=== PATIENT | male | born 1945 | race Caucasian/White ===

== ENCOUNTER 2018-09-02 23:52 | Inpatient (IN) | payer MEDICARE ==
[2018-09-03] MEDS ORDERED: NORMAL SALINE 500 ML IV ONE (03:26)
[2018-09-03] MEDS ORDERED: ONDANSETRON HCL INJ/PF 4 MG/2 ML SDV IV ONE (03:26)
[2018-09-03 04:20] LABS: ABSOLUTE EOSINOPHILS # (AUTO) 0.5 10^3/uL (0.0-0.6); ABSOLUTE LYMPHOCYTES (AUTO) 2.5 10^3/uL (0.5-4.7); ABSOLUTE MONOCYTES (AUTO) 0.9 10^3/uL (0.1-1.4); ABSOLUTE NEUT (AUTO) 7.6 10^3/uL (1.7-8.2); BASOPHILS % (AUTO) 0.4 % (0-2); EOSINOPHILS % (AUTO) 4.6 % (0-6); HEMATOCRIT 38.4 % (37.9-51.0); HEMOGLOBIN 12.9 g/dL (13.5-17.0); LYMPHOCYTES % (AUTO) 21.5 % (13-45); MEAN CORPUSCULAR HEMOGLOBIN 31.6 pg (27.0-33.4); MEAN CORPUSCULAR HGB CONC 33.7 g/dL (32.0-36.0); MEAN CORPUSCULAR VOLUME 94 fl (80-97); MONOCYTES % (AUTO) 7.6 % (3-13); PLATELET COUNT 189 10^3/uL (150-450); RED BLOOD COUNT 4.09 10^6/uL (4.35-5.55); RED CELL DISTRIBUTION WIDTH 15.1 % (11.5-14.0); SEGMENTED NEUTROPHILS % (AUTO) 65.9 % (42-78); TOTAL CELLS COUNTED % (AUTO) 100 %; WHITE BLOOD COUNT 11.5 10^3/uL (4.0-10.5)
[2018-09-03 05:06] LABS: ALANINE AMINOTRANSFERASE 18 U/L (21-72); ALBUMIN 4.1 g/dL (3.5-5.0); ALKALINE PHOSPHATASE 63 U/L (38-126); ANION GAP 8 (5-19); ASPARTATE AMINO TRANSFERASE 14 U/L (17-59); BILIRUBIN,DIRECT 0.3 mg/dL (0.0-0.4); BILIRUBIN,TOTAL 0.7 mg/dL (0.2-1.3); BLOOD UREA NITROGEN 22 mg/dL (7-20); CALCIUM 8.9 mg/dL (8.4-10.2); CARBON DIOXIDE 30 mmol/L (22-30); CHLORIDE 103 mmol/L (98-107); GLUCOSE 130 mg/dL (75-110); POTASSIUM 3.8 mmol/L (3.6-5.0); SODIUM 140.9 mmol/L (137-145); TOTAL PROTEIN 7.1 g/dL (6.3-8.2)
--- NOTE | 2018-09-03 05:09 | RADIOLOGY REPORT (SQ) ---
EXAM DESCRIPTION: XR ABDOMEN SUPINE AND ERECT WITH CHEST (ABD ACUTE SERIES) COMPLETED DATE/TME: 09/03/2018 03:25 CLINICAL HISTORY: 73 years, Male, abdominal pain COMPARISON: None. NUMBER OF VIEWS: 4 TECHNIQUE: Upright chest with supine and erect views of the abdomen LIMITATIONS: None. FINDINGS: Cardiomegaly with mild interstitial edema. Lungs are otherwise clear. No pneumothorax. No free air under the hemidiaphragms. Mild gaseous distention of small bowel with associated air-fluid levels. Relative paucity of colonic gas. No free air. Osteopenia IMPRESSION: Cardiomegaly with mild interstitial edema. Mildly dilated air-filled loops of small bowel with associated air-fluid levels. Findings likely relate to ileus. Partial or incomplete obstruction not excluded. copyright 2010 [employer]- All Rights Reserved
--- NOTE | 2018-09-03 05:10 | ER Document Report ---
ED General - General Chief Complaint: Abdominal Pain Stated Complaint: ABDOMINAL PAIN Time Seen by Provider: 09/03/18 03:18 Notes: Patient is a pleasant 73-year-old male presents with complaint of abdominal distention and some pain. This started 2-3 days ago. He says started after eating food. Is not had a bowel movement last 3 days. Says he is felt febrile at home and had chills but has not checked this time. No vomiting. No history of abdominal surgeries. He had a colonoscopy 6 months ago which showed some diverticulosis. No history of bowel obstruction. No other complaints at this time. TRAVEL OUTSIDE OF THE [place] IN LAST 30 DAYS: No - Related Data Allergies/Adverse Reactions: No Known Allergies Allergy (Unverified 09/03/18 04:13) Past Medical History - Social History Smoking Status: Never Smoker Frequency of alcohol use: None Drug Abuse: None Family History: Reviewed & Not Pertinent Patient has suicidal ideation: No Patient has homicidal ideation: No - Past Medical History Cardiac Medical History: Reports: Hx Hypertension Renal/ Medical History: Reports: Hx Kidney Stones. Denies: Hx Peritoneal Dialysis Past Surgical History: Reports: Hx Orthopedic Surgery - R shoulder, R knee Review of Systems - Review of Systems Notes: My Normal Review Basic REVIEW OF SYSTEMS: CONSTITUTIONAL : Denies fever, chills, or sweats. Denies recent illness. EENT: Denies eye, ear, throat, or mouth pain or symptoms. Denies nasal or sinus congestion. RESPIRATORY: Denies cough, cold, or chest congestion. Denies shortness of breath, difficulty breathing, or wheezing. GASTROINTESTINAL: Abdominal pain. Abdominal distention. Some nausea but no vomiting. GENITOURINARY: Denies difficulty urinating, painful urination, burning, frequency, or blood in urine. MUSCULOSKELETAL: Denies neck or back pain or joint pain or swelling. SKIN: Denies rash or skin lesions. NEUROLOGICAL: Denies altered mental status or loss of consciousness. Denies headache. Denies weakness or paralysis or loss of use of either side. Denies problems with gait or speech. Denies sensory or motor loss. ALL OTHER SYSTEMS REVIEWED AND NEGATIVE. Physical Exam - Vital signs Vitals: Temp Pulse Resp BP Pulse Ox 99.4 F 93 16 128/68 H 93 09/03/18 00:43 09/03/18 00:43 09/03/18 00:43 09/03/18 00:43 09/03/18 00:43 - Notes Notes: General Appearance: Well nourished, alert, cooperative, no acute distress, no obvious discomfort. Vitals: reviewed, See vital signs table. Head: no swelling or tenderness to the head Eyes: PERRL, EOMI, Conjuctiva clear Mouth: No decreasd moisture Lungs: No wheezing, No rales, No rhonci, No accessory muscle use, good air exchange bilaterally. Heart: Normal rate, Regular rythm, No murmur, no rub Abdomen: Normal BS, soft, No rigidity, patient does have some distention of the abdomen. Is tender mostly in the epigastric and upper left quadrant of the abdomen. Some pain in left lower quadrant as well. No rebound. No guarding. Extremities: strength 5/5 in all extremities, good pulses in all extremities, no swelling or tenderness in the extremities, no edema. Skin: warm, dry, appropriate color, no rash Neuro: speech clear, oriented x 3, normal affect, responds appropriately to questions. Course - Re-evaluation Re-evalutation: 09/03/18 07:34 Patient is abdominal distention and abdominal series showed ileus. I did CT scan of the patient's and pelvis which showed inflammation around the pancreas. Patient lipase are minimally elevated. Patient did have pink otitis related to medication such as colchicine or this could be an underlying cancer that is undiagnosed. There is no tumors or masses seen on the skin at this time. I did speak with the hospitalist, Dr. Dumont, who agrees to come evaluate the patient for admission. Dictation of this chart was performed using voice recognition software; therefore, there may be some unintended grammatical errors. - Vital Signs Vital signs: Temp Pulse Resp BP Pulse Ox 100.2 F 89 17 138/77 H 97 09/03/18 06:10 09/03/18 06:10 09/03/18 06:10 09/03/18 06:10 09/03/18 06:10 - Laboratory Result Diagrams: 09/03/18 04:00 09/03/18 04:45 Laboratory results interpreted by me: 09/03/18 09/03/18 04:00 04:45 WBC 11.5 H RBC 4.09 L Hgb 12.9 L RDW 15.1 H BUN 22 H Creatinine 1.44 H Est GFR ( Amer) 58 L Est GFR (Non-Af Amer) 48 L Glucose 130 H AST 14 L ALT 18 L Lipase 325.0 H Discharge - Discharge Clinical Impression: Pancreatitis Qualifiers: Chronicity: acute Pancreatitis type: unspecified pancreatitis type Acute pa ncreatitis complication: no infection or necrosis Qualified Code(s): K85.90 - Acute pancreatitis without necrosis or infection, unspecified Condition: Stable Disposition: ADMITTED INPATIENT Admitting Provider: Hospitalist Unit Admitted: Telemetry
--- NOTE | 2018-09-03 06:33 | RADIOLOGY REPORT (SQ) ---
EXAM DESCRIPTION: CT ABDOMEN PELVIS WITH IV CONTRAST COMPLETED DATE/TME: 09/03/2018 00:00 CLINICAL HISTORY: Lower abdominal pain COMPARISON: None Available. TECHNIQUE: CT of the abdomen and pelvis performed following IV administration of 95 mL of Omnipaque 350. DLP: 1590.45 mGycm FINDINGS: Lung Bases: Minimal scarring in the right lung base. Coronary artery atherosclerosis. Bones: No destructive bone lesions identified. Abdomen: Liver: The liver has normal size and density. No intrahepatic mass or biliary dilatation. Gallbladder: No calcified gallstones. Spleen, Pancreas, and Adrenal Glands: Small amount of free peripancreatic fluid and peripancreatic inflammatory change without evidence of well-circumscribed peripancreatic fluid or pancreatic necrosis. Kidneys: 0.7 cm nonobstructing interpolar left renal calculus. Bosniak class I left renal cyst. No hydronephrosis or solid renal mass. Vasculature: Aortoiliac atherosclerosis. IVC is unremarkable. The portal vein is patent. The proximal visceral and renal arteries are patent. Stomach: The stomach and duodenum have normal course. Other: No free intraperitoneal air. No lymphadenopathy. Pelvis: Bladder: Urinary bladder is unremarkable. Bowel: No dilated loops of large or small bowel. Scattered diverticula of the colon. Appendix: The appendix is mildly prominent however the distal appendix is air-filled and there is no significant wall thickening of the appendix. No significant periappendiceal inflammatory change except as it courses near the pancreas. These findings are likely within normal limits. Pelvis: Prostate is not enlarged. IMPRESSION: 1. Findings compatible with acute pancreatitis. No evidence of pancreatic necrosis or well-circumscribed peripancreatic fluid collection. 2. Nonobstructing left nephrolithiasis. 3. Diverticulosis without evidence of acute diverticulitis. This exam was performed according to our departmental dose-optimization program, which includes automated exposure control, adjustment of the mA and/or kV according to patient size and/or use of iterative reconstruction technique.
[2018-09-03] MEDS ORDERED: NORMAL SALINE 1000 ML 1,000 ML IV ONE (07:39)
[2018-09-03] MEDS ORDERED: IPRATROPIUM/ALBUTEROL 0.5-2.5 MG/3 ML AMPUL NEB PRN (10:36)
[2018-09-03] MEDS ORDERED: ONDANSETRON HCL INJ/PF 4 MG/2 ML SDV IV PRN (10:36)
--- NOTE | 2018-09-03 11:02 | PDOC H&P ---
History of Present Illness Admission Date/PCP: 09/03/18 08:40 Patient complains of: abdominal pain/distension History of Present Illness: CHELLE HARE is a 73 year old male with PMH of HTN and gout, who presented to the ED c/o abdominal distension/pain for about 2 days. states 2 days ago he had catfish and hushpuppies and since then started to have abdominal distention. he ate very little yesterday- states he just doesn't feel like eating- feels very bloated- admits to having flatus. normally he has a BM 2-3 times day but he hasn't had one in 3 days now. denies changes in medications, diet or lifestyle. denies recent travel. he came to the ED last night due to his symptoms- per family he was wheezing in the ER overnight but this morning he feels fine. he did have some chills at home and a low grade temp in the ED. he did not check his temp at home. his daughters are in the room- tells me that he had colonoscopy with his GI doctor in [place] about 6 months ago and found to have diverticulosis only. he doesn't admit to history of CKD but his Cr is elevated in the ED he had CT abdo/pelvis is indicative of pancreatitis- lipase is mildly elevated. Past Medical History Cardiac Medical History: Reports: Hypertension Past Surgical History Past Surgical History: Reports: Orthopedic Surgery - R shoulder, R knee Social History Smoking Status: Never Smoker - Advance Directive Resuscitation Status: Full Code Family History Family History: None, Reviewed & Not Pertinent Parental Family History Reviewed: Yes Children Family History Reviewed: Unknown Sibling(s) Family History Reviewed.: Unknown Medication/Allergy Home Medications: Acetaminophen [Tylenol Extra Strength 500 mg Tablet] 1,000 mg PO Q4HP PRN 09/03/18 Allopurinol [Zyloprim 300 mg Tablet] 300 mg PO DAILY 09/03/18 Amlodipine Besylate/Benazepril [Lotrel 10-20 mg Capsule] 1 cap PO DAILY 09/03/18 Cholecalciferol (Vitamin D3) [Vitamin D3 2000 unit Tablet] 2,000 unit PO DAILY 09/03/18 Starbuck-3S/Dha/Epa/Fish Oil [Starbuck Power 1,050 mg Softgel] 1,050 mg PO DAILY 09/03/18 Omeprazole 20 mg PO DAILY@0630 09/03/18 Pravastatin Sodium [Pravachol] 20 mg PO QHS 09/03/18 Pregabalin [Lyrica 75 mg Capsule] 75 mg PO Q12 09/03/18 Psyllium Husk [Metamucil] 0.8 gm PO DAILY 09/03/18 Tramadol HCl [Ultram 50 mg Tablet] 50 mg PO BIDP PRN 09/03/18 Allergies/Adverse Reactions: No Known Allergies Allergy (Unverified 09/03/18 04:13) Review of Systems All systems: reviewed and no additional remarkable complaints except as stated Constitutional: PRESENT: chills. ABSENT: night sweats Eyes: ABSENT: visual disturbances Ears: ABSENT: hearing changes Nose, Mouth, and Throat: ABSENT: headache(s) Cardiovascular: ABSENT: chest pain Respiratory: PRESENT: other - wheezing. ABSENT: cough, dyspnea Gastrointestinal: PRESENT: abdominal pain, bloating. ABSENT: nausea, vomiting Genitourinary: ABSENT: dysuria Neurological: ABSENT: confusion, syncope Endocrine: ABSENT: polyphagia, polyuria Physical Exam Vital Signs: Temp Pulse Resp BP Pulse Ox 100.2 F 89 17 138/77 H 97 09/03/18 06:10 09/03/18 06:10 09/03/18 06:10 09/03/18 06:10 09/03/18 06:10 Intake & Output 09/02/18 09/03/18 09/04/18 06:59 06:59 06:59 Intake Total 500 Balance 500 Weight 184 lb 4.903 oz General appearance: PRESENT: no acute distress, other - hard of hearing Head exam: PRESENT: atraumatic, normocephalic Eye exam: PRESENT: EOMI, PERRLA. ABSENT: scleral icterus Ear exam: PRESENT: normal external ear exam Mouth exam: PRESENT: tongue midline Neck exam: ABSENT: tracheal deviation Respiratory exam: PRESENT: clear to auscultation jayden, symmetrical, unlabored. ABSENT: wheezes Cardiovascular exam: PRESENT: +S1, +S2 Pulses: PRESENT: +2 pedal pulses bilateral GI/Abdominal exam: PRESENT: distended, firm, normal bowel sounds, tenderness - mild diffuse TTP in quadrants Extremities exam: ABSENT: joint swelling, pedal edema Neurological exam: PRESENT: alert, awake, oriented to person, oriented to place, oriented to time, oriented to situation, CN II-XII grossly intact Skin exam: PRESENT: dry, warm Results Laboratory Results: 09/03/18 04:00 09/03/18 04:45 09/03/18 09/03/18 09/03/18 04:00 04:00 04:45 WBC 11.5 H RBC 4.09 L Hgb 12.9 L Hct 38.4 MCV 94 MCH 31.6 MCHC 33.7 RDW 15.1 H Plt Count 189 Seg Neutrophils % 65.9 Lymphocytes % 21.5 Monocytes % 7.6 Eosinophils % 4.6 Basophils % 0.4 Absolute Neutrophils 7.6 Absolute Lymphocytes 2.5 Absolute Monocytes 0.9 Absolute Eosinophils 0.5 Absolute Basophils 0.0 Sodium Cancelled 140.9 Potassium Cancelled 3.8 Chloride Cancelled 103 Carbon Dioxide Cancelled 30 Anion Gap Cancelled 8 BUN Cancelled 22 H Creatinine Cancelled 1.44 H Est GFR ( Amer) Cancelled 58 L Est GFR (Non-Af Amer) Cancelled 48 L Glucose Cancelled 130 H Calcium Cancelled 8.9 Total Bilirubin Cancelled 0.7 AST Cancelled 14 L ALT Cancelled 18 L Alkaline Phosphatase Cancelled 63 Total Protein Cancelled 7.1 Albumin Cancelled 4.1 Lipase Cancelled 325.0 H Impressions: Abdomen/Pelvis CT 09/03/18 00:00 IMPRESSION: 1. Findings compatible with acute pancreatitis. No evidence of pancreatic necrosis or well-circumscribed peripancreatic fluid collection. 2. Nonobstructing left nephrolithiasis. 3. Diverticulosis without evidence of acute diverticulitis. This exam was performed according to our departmental dose-optimization program, which includes automated exposure control, adjustment of the mA and/or kV according to patient size and/or use of iterative reconstruction technique. Acute Abdomen Series 09/03/18 03:25 IMPRESSION: Cardiomegaly with mild interstitial edema. Mildly dilated air-filled loops of small bowel with associated air-fluid levels. Findings likely relate to ileus. Partial or incomplete obstruction not excluded. copyright 2010 [employer]- All Rights Reserved Assessment & Plan - Diagnosis (1) Pancreatitis Qualifiers: Chronicity: acute Pancreatitis type: unspecified pancreatitis type Acute pancreatitis complication: no infection or necrosis Qualified Code(s): K85.90 - Acute pancreatitis without necrosis or infection, unspecified Is this a current diagnosis for this admission?: Yes (3) Chronic gout Is this a current diagnosis for this admission?: Yes (4) Chronic pain Is this a current diagnosis for this admission?: Yes (6) ASHLYN (acute kidney injury) Is this a current diagnosis for this admission?: Yes (7) Leukocytosis Is this a current diagnosis for this admission?: Yes (8) Wheezing Is this a current diagnosis for this admission?: Yes - Time Time Spent: 50 to 70 Minutes Anticipated discharge: Home Within: within 72 hours - Plan Summary Plan Summary: Pancreatitis- lipase 325- mild. i am not sure if this is the cause of his abdominal pain/distension- will give IV fluids and clear liquid diet and see how he does. check levels in AM. his abdomen is distended but not sure of his baseline. ASHLYN- no history of CKD in the chart- patient no aware of any renal problems- Cr 1.4 today- will start IV fluids and repeat labs in AM HTN- c/w home meds once they are reconciled Gout- will hold home med for now GERD- will give him some pepcid while in hospital Leukocytosis- and some chills on history- Tmax 100.2 in ED- will keep an eye on this- ?reactive vs gastroenteritis. unclear. will send for cultures- Ucx, Bcx to rule out infection. Can check ESR in AM. wheezing- was wheezing in the ED overnight- none now- [place] PRN- unclear what is causing that- will get CXR to r/o early pneumonia since he does have chills and low grade temp
--- NOTE | 2018-09-03 12:52 | RADIOLOGY REPORT (SQ) ---
EXAM DESCRIPTION: CHEST 2 VIEWS COMPLETED DATE/TIME: 09/03/2018 12:35 pm REASON FOR STUDY: fever/chills, wheezing, r/o pneumonia COMPARISON: None. EXAM PARAMETERS: NUMBER OF VIEWS: two views TECHNIQUE: Digital Frontal and Lateral radiographic views of the chest acquired. RADIATION DOSE: NA LIMITATIONS: none FINDINGS: LUNGS AND PLEURA: Mild interstitial prominence. No opacities, masses or pneumothorax. No pleural effusion. MEDIASTINUM AND HILAR STRUCTURES: No masses or contour abnormalities. HEART AND VASCULAR STRUCTURES: Heart normal size. No evidence for failure. BONES: No acute findings. HARDWARE: None in the chest. OTHER: No other significant finding. IMPRESSION: MILD INTERSTITIAL PROMINENCE MAY BE CHRONIC IN NATURE OR DUE TO MILD INTERSTITIAL EDEMA. OTHERWISE NO ACUTE RADIOGRAPHIC FINDING IN THE CHEST. TECHNICAL DOCUMENTATION: JOB ID: [id number] [employer]- All Rights Reserved Reading location - IP/workstation name: [email or web address]
[2018-09-03] MEDS: HEPARIN SOD (PORCINE) 5,000 UNIT/ML 1 ML SYRINGE SUBCUT SCH ×2 (14:00→22:10)
[2018-09-03] MEDS ORDERED: ACETAMINOPHEN 325 MG TABLET PO PRN (14:35)
[2018-09-03] MEDS ORDERED: TRAMADOL HCL 50 MG TABLET PO PRN (17:51)
[2018-09-03] MEDS: DOCUSATE SODIUM 100 MG/10 ML UDC PO SCH (18:16)
[2018-09-03] MEDS: NORMAL SALINE 1000 ML 1,000 ML IV PRN (19:45)
[2018-09-03] MEDS: PREGABALIN 75 MG CAPSULE PO SCH (22:10)
[2018-09-03] MEDS: FAMOTIDINE 20 MG TABLET PO SCH (22:10)
[2018-09-04] MEDS: HEPARIN SOD (PORCINE) 5,000 UNIT/ML 1 ML SYRINGE SUBCUT SCH ×2 (05:27→13:58)
[2018-09-04 06:32] LABS: ABSOLUTE EOSINOPHILS # (AUTO) 0.8 10^3/uL (0.0-0.6); ABSOLUTE LYMPHOCYTES (AUTO) 2.4 10^3/uL (0.5-4.7); ABSOLUTE MONOCYTES (AUTO) 0.6 10^3/uL (0.1-1.4); ABSOLUTE NEUT (AUTO) 5.5 10^3/uL (1.7-8.2); BASOPHILS % (AUTO) 0.5 % (0-2); EOSINOPHILS % (AUTO) 8.8 % (0-6); HEMATOCRIT 32.7 % (37.9-51.0); HEMOGLOBIN 11.1 g/dL (13.5-17.0); LYMPHOCYTES % (AUTO) 25.8 % (13-45); MEAN CORPUSCULAR HEMOGLOBIN 31.8 pg (27.0-33.4); MEAN CORPUSCULAR HGB CONC 33.9 g/dL (32.0-36.0); MEAN CORPUSCULAR VOLUME 94 fl (80-97); MONOCYTES % (AUTO) 6.6 % (3-13); PLATELET COUNT 157 10^3/uL (150-450); RED BLOOD COUNT 3.48 10^6/uL (4.35-5.55); SEGMENTED NEUTROPHILS % (AUTO) 58.3 % (42-78); TOTAL CELLS COUNTED % (AUTO) 100 %; WHITE BLOOD COUNT 9.4 10^3/uL (4.0-10.5)
[2018-09-04 06:44] LABS: ANION GAP 8 (5-19); BLOOD UREA NITROGEN 15 mg/dL (7-20); CALCIUM 8.8 mg/dL (8.4-10.2); CARBON DIOXIDE 26 mmol/L (22-30); CHLORIDE 105 mmol/L (98-107); GLUCOSE 113 mg/dL (75-110); LIPASE 123.3 U/L (23-300); POTASSIUM 4.3 mmol/L (3.6-5.0)
[2018-09-04] MEDS ORDERED: AMLODIPINE BESYLATE 10 MG TABLET PO SCH (10:00)
[2018-09-04] MEDS ORDERED: AMLODIPINE BESYLATE PO SCH (10:00)
[2018-09-04] MEDS ORDERED: BENAZEPRIL HCL 20 MG TABLET PO SCH (10:00)
[2018-09-04] MEDS ORDERED: BENAZEPRIL PO SCH (10:00)
[2018-09-04] MEDS: PREGABALIN 75 MG CAPSULE PO SCH ×2 (10:32→10:39)
[2018-09-04] MEDS: DOCUSATE SODIUM 100 MG/10 ML UDC PO SCH (10:32)
[2018-09-04] MEDS: FAMOTIDINE 20 MG TABLET PO SCH (10:32)
[2018-09-04] MEDS: NORMAL SALINE 1000 ML 1,000 ML IV PRN (10:33)
[2018-09-04 16:49] VITALS: BP 122/62
[2018-09-04] MEDS ORDERED: ATORVASTATIN CALCIUM 10 MG TABLET PO SCH (22:00)
--- NOTE | 2018-09-05 09:36 | Physician Advisory Note ---
Physician Advisor ProgressNote .: Pursuant to the plan for [facility], I have reviewed the medical record for this patient. Physician Advisor Statement: Please clarify on DCS: 1. "Acute abd pain, suspect due to " 2. "leukocytosis - possible bacterial infection of unknown source ruled in/out" 3. Is ASHLYN still suspected, or ruled out? (without known baseline Cr level or significant acute change with tx, it may be hard to prove ASHLYN ....) 4. R.e. status: if attending is/was convinced, at time of adm order, that Medicare pt will/would need at least 2 medically-necessary MNs in hospital care/monitoring, then Inpt status can be appropriate even if pt turns out to go home after 1MN - but for this to be appropriate, we need clear explicit documentation that 2MNs were expected (& why), & also clear documentation that attending was then surprised by unexpectedly quick recovery. - If this is not the case (& this should only be documented if it is accurate), then Inpatient status is likely to be denied. Thanks! CK
--- NOTE | 2018-09-06 07:26 | DISCHARGE SUMMARY E ---
Discharge Summary NAME: CHELLE HARE : 1945 AGE: 73Y ADMITTED: 09/03/2018 DISCHARGED: 09/04/2018 CODE STATUS: Full code. PRIMARY CARE PROVIDER: [facility] DISCHARGE DIAGNOSES: 1. Acute pancreatitis. 2. Chronic kidney disease, stage III. 3. Hypertension. 4. GERD. 5. Hyperlipidemia. 6. Peripheral neuropathies. DISCHARGE MEDICATIONS: 1. Tylenol Extra Strength 500 mg p.o. q.4 hours p.r.n. 2. Vitamin D3 2000 international units p.o. daily. 3. Fish oil 1050 mg p.o. daily. 4. Omeprazole 20 mg p.o. daily. 5. Pravachol 20 mg p.o. q.h.s . 6. Lyrica 35 mg p.o. q.12 hours. 7. Metamucil 0.8 g p.o. daily. 8. Ultram 50 mg p.o. b.i.d. p.r.n. 9. Norvasc 10 mg p.o. daily, 30 tablets with 0 refills. DIET: Low fat. ACTIVITY: As tolerated. CONDITION: Good. DIAGNOSTIC AND LAB VALUES: Hematology done on 09/04/2018: WBC: hemoglobin 11.1, hematocrit 13.7, platelet count is 157,000. Sed rate is 71. Chemistry done on 09/04/2018: Sodium is 140, potassium, 2.8, chloride 103, bicarbonate is 30. BUN 22, creatinine is 1.44. Glucose 130, A1c is 5.5, calcium is 8.9, magnesium is 2.4, bilirubin 0.7, AST 14, ALT 18, alkaline phosphatase 63, ammonia is 8.7, troponin is 0.012, total protein is 7.1, albumin is 4.1, lipase is 123, TSH is 1.98. Urine cultures done on 09/03/2018 reveals no growth. Blood cultures obtained on 09/03/[address] of the abdomen and pelvis obtained on 09/03/2018 reveals findings compatible with acute pancreatitis. No evidence of pancreatic necrosis or fluid collection. Non obstructed with nephrolithiasis. Diverticulosis without evidence of acute diverticulitis. Chest x-ray obtained on 09/03/2018 reveals mild interstitial prominence which may be chronic in nature or due to mild interstitial edema. Acute abdominal series obtained on 09/03/2018 reveals cardiomegaly. PHYSICAL EXAMINATION: General: On examination, the patient is a well-developed, well-nourished 73-year-old male who is awake, alert and oriented to person, place, time and situation. He is verbal and conversational. He does not appear to be in any acute distress. Vital Signs: Temperature 98.7, pulse 84, respirations 18, blood pressure 115/67, oxygen saturation is 96% on room air. Skin: Warm and dry. No rash. HEENT: Pupils equal, round and reactive to light and accommodation. NECK: No JVD. CVS: Heart is regular Extremities: No clubbing, cyanosis or edema. Psychiatric: Appropriate affect. Pleasant mood. HISTORY OF PRESENT ILLNESS: The patient is a 73-year-old male with a past medical history of hypertension, as well as gout. The patient presented to the Emergency Department with the chief complaint of abdominal pain. The patient stated that about 2 days ago he ate catfish and hush puppies and since then felt the meal did not sit with him and was having abdominal pain and distention. The patient ate very little the day before presentation and states that he was feeling very bloated and having a lot of flatulence. The patient normally has a BM 2 to 3 times a day but has not had a BM since that time. The patient denies any changes in medication or lifestyle . The patient was noted to have some in the ER but otherwise from a respiratory standpoint felt fine. The patient has had a recent colonoscopy and findings are consistent with diverticulosis. Family and patient were unaware of a baseline creatinine but given the findings on CT that was suggestive of a pancreatitis the patient was referred to the hospital for admission and management. HOSPITAL COURSE: The patient was admitted to telemetry unit. The patient was initially kept n.p.o. and then was started on clear liquids. The patient was gently hydrated as well. The patient's lipase normalized overnight. The patient's diet was advanced to a low fat diet for which he tolerated without issue. The patient has had complete symptom resolution and states he feels very well. I called to get labs on the patient from his primary for a point of reference given that the patient's creatinine did not really change overnight. The patient's BUN came down but creatinine remained at 1.5. It appears that the patient's last available labs that were available over the phone were from 2009 in which the patient had a creatinine of 1.2 at that time. Most likely this is the patient's natural progression. As the patient does appear to be completely optivolemic at this point and has no clinical evidence of dehydration and the patient is eating and drinking without issue; however, given the uncertainties of the patient's creatinine we will hold off on his gout medication as well as ALEKSANDER inhibitor for now. The patient is aware of this and will follow up with his primary care provider. The patient is absolutely eager for discharge. DISCHARGE PLAN: 1. The patient is to follow up with his primary care provider within 1 to 2 weeks for hospital followup. 2. Time spent on this discharge including assessment, plan, physical examination, patient education, review of records, family meeting and multiple phone calls was 35 minutes. DICTATING PHYSICIAN: JOAQUIN TRENT NP [id number] PHY#: [id number] ID: [id number] JOB#: [id number] ACCT: [id number] cc:LG AYALA MD, MICHAEL NP > MTDD
== END 2018-09-04 16:45 | disposition home or self-care (01) | DRG 439 ==
LOC: ER 23:52 → EH 09-03 08:40 → 4S 09-03 16:54
PROVIDERS: ADMIT Internal Medicine; ATTEND Internal Medicine
DX: K85.90 Acute pancreatitis without necrosis or infection, unspecified (principal); N17.9 Acute kidney failure, unspecified; G62.9 Polyneuropathy, unspecified; N18.3 Chronic kidney disease, stage 3 (moderate); I12.9 Hypertensive chronic kidney disease with stage 1 through stage 4 chronic kidney disease, or unspecified chronic kidney disease; K21.9 Gastro-esophageal reflux disease without esophagitis; E78.5 Hyperlipidemia, unspecified; K57.90 Diverticulosis of intestine, part unspecified, without perforation or abscess without bleeding; R06.2 Wheezing; H91.90 Unspecified hearing loss, unspecified ear; M1A.9XX0 Chronic gout, unspecified, without tophus (tophi); G89.29 Other chronic pain; D72.829 Elevated white blood cell count, unspecified
CPT/HCPCS: 36415; 71046; 74022; 74177; 80048; 80053; 82140; 83036; 83690; 83735; 84443; 84484; 85025; 85652; 87040; 87086; 96361; 96374; 99285; J1644; J2405; J7030; J7040; J7620

== ENCOUNTER 2018-12-12 22:43 | Emergency (ER) | payer MEDICARE ==
[2018-12-13 01:17] LABS: ABSOLUTE EOSINOPHILS # (AUTO) 0.9 10^3/uL (0.0-0.6); ABSOLUTE LYMPHOCYTES (AUTO) 2.1 10^3/uL (0.5-4.7); ABSOLUTE MONOCYTES (AUTO) 0.4 10^3/uL (0.1-1.4); ABSOLUTE NEUT (AUTO) 4.6 10^3/uL (1.7-8.2); BASOPHILS % (AUTO) 0.4 % (0-2); EOSINOPHILS % (AUTO) 10.8 % (0-6); HEMATOCRIT 35.5 % (37.9-51.0); LYMPHOCYTES % (AUTO) 26.2 % (13-45); MEAN CORPUSCULAR HEMOGLOBIN 31.6 pg (27.0-33.4); MEAN CORPUSCULAR HGB CONC 33.8 g/dL (32.0-36.0); MEAN CORPUSCULAR VOLUME 93 fl (80-97); MONOCYTES % (AUTO) 5.2 % (3-13); PLATELET COUNT 182 10^3/uL (150-450); RED CELL DISTRIBUTION WIDTH 15.9 % (11.5-14.0); SEGMENTED NEUTROPHILS % (AUTO) 57.4 % (42-78); TOTAL CELLS COUNTED % (AUTO) 100 %
[2018-12-13 01:34] LABS: ALANINE AMINOTRANSFERASE 34 U/L (21-72); ALBUMIN 4.6 g/dL (3.5-5.0); ALKALINE PHOSPHATASE 71 U/L (38-126); ANION GAP 12 (5-19); ASPARTATE AMINO TRANSFERASE 26 U/L (17-59); BILIRUBIN,DIRECT 0.2 mg/dL (0.0-0.4); BILIRUBIN,TOTAL 0.3 mg/dL (0.2-1.3); BLOOD UREA NITROGEN 23 mg/dL (7-20); CALCIUM 9.7 mg/dL (8.4-10.2); CARBON DIOXIDE 24 mmol/L (22-30); CHLORIDE 107 mmol/L (98-107); GLUCOSE 103 mg/dL (75-110); SODIUM 143.4 mmol/L (137-145); TOTAL PROTEIN 7.4 g/dL (6.3-8.2)
[2018-12-13 01:35] LABS: APPEARANCE,URINE CLEAR; BILIRUBIN,URINE NEGATIVE (NEGATIVE); COLOR,URINE YELLOW; GLUCOSE, URINE NEGATIVE (NEGATIVE); KETONES,URINE NEGATIVE (NEGATIVE); LEUKOCYTE ESTERASE,URINE NEGATIVE (NEGATIVE); NITRITE,URINE NEGATIVE (NEGATIVE); PROTEIN,URINE 30 mg/dL (NEGATIVE); URINE SPECIFIC GRAVITY 1.015; UROBILINOGEN,URINE NEGATIVE mg/dL (<2.0)
--- NOTE | 2018-12-13 02:36 | RADIOLOGY REPORT (SQ) ---
EXAM DESCRIPTION: US ABDOMEN LIMITED COMPLETED DATE/TME: 12/13/2018 01:04 CLINICAL HISTORY: 73 years, Male, upper ab pain COMPARISON: CT 09/13/2018 TECHNIQUE: Limited right upper quadrant ultrasound LIMITATIONS: None. FINDINGS: The liver is homogenous in echotexture without focal lesion. No gallstones or gallbladder wall thickening. CBD measures 3.8 mm. The pancreas, abdominal aorta, inferior vena cava, right kidney are unremarkable. There is no ascites IMPRESSION: Unremarkable exam copyright 2010 [employer]- All Rights Reserved
--- NOTE | 2018-12-13 03:20 | ER Document Report ---
ED General - General Chief Complaint: Abdominal Pain Stated Complaint: UPPER LEFT ABDOMINAL PAIN Time Seen by Provider: 12/13/18 01:03 Notes: Patient is a 73-year-old male with a past medical history of essential hypertension, hyperlipidemia, previous history of questionable pancreatitis in August 2018 who presents with several hours of upper abdominal pain. Pain started earlier today, was associated with one episode of diarrhea as well as nausea but no vomiting. Patient describes the pain is gradual in onset, mild to moderate in intensity, constant since that time although states has waned somewhat since initial onset. The patient is actually sleeping when I first into the room. He states that this is not feel like when he was diagnosed with pancreatitis in August 2018. He has no prior abdominal surgical history. Has not seen his primary care physician regarding today's concerns. Denies chest pain, shortness of breath, fever or constitutional symptoms. Has not contacted his primary care doctor regarding today's concerns. TRAVEL OUTSIDE OF THE [place] IN LAST 30 DAYS: No - Related Data Allergies/Adverse Reactions: No Known Allergies Allergy (Unverified 09/03/18 04:13) Past Medical History - General Information source: Patient - Social History Smoking Status: Never Smoker Chew tobacco use (# tins/day): No Frequency of alcohol use: None Drug Abuse: None Lives with: Spouse/Significant other Family History: Reviewed & Not Pertinent Patient has suicidal ideation: No Patient has homicidal ideation: No - Past Medical History Cardiac Medical History: Reports: Hx Hypertension Renal/ Medical History: Reports: Hx Kidney Stones. Denies: Hx Peritoneal Dialysis Past Surgical History: Reports: Hx Orthopedic Surgery - R shoulder, R knee - Immunizations Hx Pneumococcal Vaccination: 07/27/18 Review of Systems - Review of Systems Notes: Constitutional: Negative for fever. HENT: Negative for sore throat. Eyes: Negative for visual changes. Cardiovascular: Negative for chest pain. Respiratory: Negative for shortness of breath. Gastrointestinal: Positive for upper abdominal pain, diarrhea and nausea Genitourinary: Negative for dysuria. Musculoskeletal: Negative for back pain. Skin: Negative for rash. Neurological: Negative for headaches, weakness or numbness. 10 point ROS negative except as marked above and in HPI. Physical Exam - Vital signs Vitals: Temp Pulse Resp BP Pulse Ox 98.1 F 80 18 141/65 H 96 12/12/18 23:06 12/12/18 23:06 12/12/18 23:06 12/12/18 23:06 12/12/18 23:06 Interpretation: Hypertensive Notes: PHYSICAL EXAMINATION: GENERAL: Well-appearing, well-nourished and in no acute distress. HEAD: Atraumatic, normocephalic. EYES: Pupils equal round and reactive to light, extraocular movements intact, sclera anicteric, conjunctiva are normal. ENT: nares patent, oropharynx clear without exudates. Moist mucous membranes. NECK: Normal range of motion, supple without lymphadenopathy LUNGS: Breath sounds clear to auscultation bilaterally and equal. No wheezes rales or rhonchi. HEART: Regular rate and rhythm without murmurs ABDOMEN: Soft, mild left upper quadrant abdominal tenderness but no other localized areas of tenderness, normoactive bowel sounds. No guarding, no rebound. No masses appreciated. Ventral hernia is notable but is soft and compressible. EXTREMITIES: Normal range of motion, no pitting or edema. No cyanosis. NEUROLOGICAL: No focal neurological deficits. Moves all extremities spontaneously and on command. PSYCH: Normal mood, normal affect. SKIN: Warm, Dry, normal turgor, no rashes or lesions noted. Course - Re-evaluation Re-evalutation: 12/13/18 03:19 Patient presents with upper abdominal discomfort only notable to the left upper quadrant on palpation otherwise well-appearing, comfortable 73-year-old male. Quadrant ultrasound without evidence of biliary pathology. Labs globally unremarkable with exception of a mildly elevated lipase not sufficiently elevated to diagnose pancreatitis. Troponin likewise negative. Do not suspect atypical presentation of ACS. A CT scan of the abdomen and pelvis will be obtained given patient's advanced age and questionable history of previous pancreatitis. 12/13/18 04:21 CT scan appears to show mild acute pancreatitis which again could be the patient 's symptoms presentation. Given the mild nature of his symptoms, ability to tolerate oral intake, minimal lipase elevation, no significant transaminitis or leukocytosis he is appropriate for outpatient management. At this time will discharge with return precautions and follow-up recommendations. Verbal discharge instructions given a the bedside and opportunity for questions given. Medication warnings reviewed. Patient is in agreement with this plan and has verbalized understanding of return precautions and the need for primary care follow-up in the next 24-72 hours. - Vital Signs Vital signs: Temp Pulse Resp BP Pulse Ox 98.1 F 80 18 141/65 H 96 12/12/18 23:06 12/12/18 23:06 12/12/18 23:06 12/12/18 23:06 12/12/18 23:06 - Laboratory Result Diagrams: 12/12/18 22:05 12/12/18 22:05 Laboratory results interpreted by me: 12/12/18 12/12/18 12/13/18 22:05 22:05 01:20 RBC 3.80 L Hgb 12.0 L Hct 35.5 L RDW 15.9 H Eosinophils % 10.8 H Absolute Eosinophils 0.9 H BUN 23 H Creatinine 1.51 H Est GFR ( Amer) 55 L Est GFR (Non-Af Amer) 46 L Lipase 353.0 H Urine Protein 30 H Urine Blood SMALL H - Diagnostic Test Radiology reviewed: Reports reviewed Discharge - Discharge Clinical Impression: Upper abdominal pain Pancreatitis Qualifiers: Chronicity: acute Pancreatitis type: unspecified pancreatitis type Acute pancreatitis complication: unspecified Qualified Code(s): K85.90 - Acute pancreatitis without necrosis or infection, unspecified CKD (chronic kidney disease) Qualifiers: Chronic kidney disease stage: unspecified stage Qualified Code(s): N18.9 - Chronic kidney disease, unspecified Condition: Stable Disposition: HOME, SELF-CARE Additional Instructions: The cause of your symptoms could be from mild pancreatic inflammation versus upper intestinal irritation. The CT scan does show some mild inflammation of your pancreas again today but does not require hospitalization. Encourage you to have a bland, mild diet over the next several days and I would focus on keeping most of your intake to clear fluids and clear foods such as Jell-O until your no longer having any kind of pain. Discontinue omeprazole and begin famotidine 20 mg twice daily. This medication can be purchased directly over the counter. Return if you develop fever, worsening pain, persistent vomiting, or any other symptoms that are worrisome to you.
--- NOTE | 2018-12-13 04:00 | RADIOLOGY REPORT (SQ) ---
EXAM DESCRIPTION: CT ABDOMEN PELVIS WITH IV CONTRAST COMPLETED DATE/TME: 12/13/2018 03:01 CLINICAL HISTORY: 73 years, Male, elderly, luq ab pain COMPARISON: 09/03/2018 CT TECHNIQUE: 740 Images stored on PACS. All CT scanners at this facility use dose modulation, iterative reconstruction, and/or weight based dosing when appropriate to reduce radiation dose to as low as reasonably achievable (ALARA). [facility]: Dose Right [facility]: CareDose [facility]: Dose Right [facility]: Teradose 4D [facility]: [employer] LIMITATIONS: None. FINDINGS: Limited evaluation of the lung bases is unremarkable. Osseous structures are grossly intact. Fatty infiltrative change to the liver. The spleen, adrenal glands, are unremarkable. Mild haziness of the body of the pancreas with minor surrounding inflammation consistent with minor pancreatitis. Appendix not well seen. No pericecal inflammation. Nonobstructing 7 mm left renal calculus. Simple left renal cyst. Gallbladder is present, grossly unremarkable. No gross evidence for bowel obstruction. Mild haziness of the central abdominal mesentery. Abundant stool in the colon. Prostate is mildly enlarged. Correlate with PSA levels. Descending and sigmoid colon diverticulosis without findings to suggest diverticulitis. IMPRESSION: Fatty infiltrative change to the liver. Minor acute pancreatitis. Nonobstructing left renal calculus. Simple left renal cyst. Descending and sigmoid colon diverticulosis. Mild enlargement of the prostate. Correlate with PSA levels TECHNICAL DOCUMENTATION: Quality ID # [id number]: Final reports with documentation of one or more dose reduction techniques (e.g., Automated exposure control, adjustment of the mA and/or kV according to patient size, use of iterative reconstruction technique) copyright 2010 [employer]- All Rights Reserved
[2018-12-13 05:18] VITALS: BP 113/61
--- NOTE | 2018-12-13 09:50 | EKG REPORT ---
SEVERITY:- ABNORMAL ECG - SINUS RHYTHM ATRIAL PREMATURE COMPLEX RBBB AND LPFB : Confirmed by: Xenia Cardenas MD 13-Dec-2018 09:49:32
== END 2018-12-13 05:19 | disposition home or self-care (01) ==
LOC: ER 22:43
DX: K85.90 Acute pancreatitis without necrosis or infection, unspecified (principal); I12.9 Hypertensive chronic kidney disease with stage 1 through stage 4 chronic kidney disease, or unspecified chronic kidney disease; N18.9 Chronic kidney disease, unspecified; R10.12 Left upper quadrant pain; R19.7 Diarrhea, unspecified; R11.0 Nausea
CPT/HCPCS: 36415; 74177; 76705; 80053; 81001; 83690; 84484; 85025; 93005; 93010; 99284

== ENCOUNTER → 2020-07-26 | Outpatient (CLI) | payer MEDICARE ==
[2020-07-26 16:41] VITALS: BP 145/87
--- NOTE | 2020-07-26 16:41 | ER RDC ASSESSMENT REPORT ---
Intake - In the Last 14 days Have you traveled outside [place]?: No Have you been in close contact with someone CONFIRMED: No Worked in Healthcare?: No - Symptoms Subjective Fever([place] feverish): No Chills: No Muscule Aches: No Runny Nose: No Sore Throat: No Cough (New or worsening chronic cough): No Shortness of breath: No Nausea or Vomiting: No Headache: No Abdominal Pain: No Diarrhea(3 or more loose stools in last 24 hours): No - Do you have any of the following Chronic lung disease: Asthma or emphysema or COPD: No Cystic Fibrosis: No Diabetes: No High Blood Pressure: No Cardiovascular Disease: No Chronic Kidney Disease: No Chronic Liver Disease: No Chronic blood disorder like Sickle Cell Disease: No Weak immune system due to disease or medication: No Neurologic condition that limits movement: No Developmental delay - Moderate to Severe: No Recent (within past 2 weeks) or current : No Morbid Obesity (>100 pounds over ideal weight): No Obesity Comment: Height 5 feet 6 inches weight 178 pounds Other Comment: History of gout - Objective Temperature: 98.1 F Pulse Rate: 81 Respiratory Rate: 18 Blood Pressure: 145/87 O2 Sat by Pulse Oximetry: 96 Objective: Given above, testing performed: If Testing Performed: Test Specimen Type Sent to General - General Information source: Patient Notes: Patient here at [facility] for Covid testing patient denies any known positive exposure to Covid that he is aware of patient here to be tested out of abundance of ca ution patient reports "to be on the safe side'. Patient PCP is with [facility]. - Related Data Allergies/Adverse Reactions: No Known Allergies Allergy (Unverified 09/03/18 04:13) Past Medical History - General Information source: Patient - Social History Smoking Status: Never Smoker Family History: Reviewed & Not Pertinent - Past Medical History Cardiac Medical History: Reports: Hx Hypertension Renal/ Medical History: Reports: Hx Kidney Stones. Denies: Hx Peritoneal Dialysis Past Surgical History: Reports: Hx Orthopedic Surgery - R shoulder, R knee Physical Exam - General General appearance: Appears well, Alert In distress: None Notes: PHYSICAL EXAMINATION: GENERAL: Well-appearing and in no acute distress. HEAD: Atraumatic, normocephalic. EYES: sclera anicteric, conjunctiva are normal. ENT: nares patent. Moist mucous membranes. NECK: Normal range of motion, supple without lymphadenopathy LUNGS: CTAB and equal. No wheezes rales or rhonchi. Respirations even and unlabored lung sounds clear HEART: Regular rate and rhythm without murmurs ABDOMEN: Soft, nontender, normal bowel sounds, no guarding. EXTREMITIES: Normal range of motion, no pitting edema. No cyanosis. NEUROLOGICAL: Cranial nerves grossly intact. Normal speech. Normal gait. PSYCH: Normal mood, normal affect. SKIN: Warm, Dry, normal turgor, no rashes or lesions noted Diagnostic Results Laboratory Results: Pending Covid testing results. Provided instructions regarding Covid to include: As a person under investigation for Covid 19, the [facility], division of public health advises you to adhere to the following guidance until your test results are reported to you. If your test result is positive, you will receive additional information from your provider and your local health department at that time. Remain at home until you are cleared by the health provider or public health authorities. Keep a log of visitors to your home, notify any visitors to your home of your isolation status. If you plan to move to a new address or leave the formerly [facility], notify the local health department in your County. Call your doctor or seek care if you have an urgent medical need. Before seeking medical care, call ahead to get instructions from the provider before arriving at the medical office clinic or hospital. Notify them that you are being tested for the virus that causes Covid 19 so that arrangements can be made, as necessary, to prevent transmission to others in the healthcare setting. Next, notify the local health department in your county. If a medical emergency arises and you need to call 911, inform the first responders that you are being tested for the virus that causes Covid 19. Next, notify the local health department in your county. Patient Education/Counseling Counseling/Education: Patient presents with upper respiratory symptoms worrisome for possible Covid 19. Patient does not have emergency worring symptoms such as difficulty breathing, shortness of breath, chest pain, pressure, confusion or cyanosis. Patient appears suitable for discharge. Patient instructed to follow-up with PCP at [facility]. Patient's vital signs are stable and patient is nontoxic in appearance. Good return precautions have been discussed with patient, patient verbalized understanding and is agreeable with discharge plan of care at this time. RDC Discharge - Discharge Clinical Impression: Encounter for screening laboratory testing for COVID-19 virus in asymptomatic patient Condition: Stable Disposition: Home; Selfcare
== END ==
LOC: RDC 15:20
PROVIDERS: ATTEND Nurse Practitioner Family
DX: U07.1 COVID-19 (principal); I10 Essential (primary) hypertension
CPT/HCPCS: 99201; U0003; G0463; C9803; 87635; 99211